=== PATIENT | female | born 1985 | race Caucasian/White ===

== ENCOUNTER 2017-11-21 16:48 | Emergency (ER) | payer OTHER, MEDICAID ==
[~2017-11-21] VITALS: Ht 170.2 cm; Wt 74.8 kg
[~2017-11-21 16:48] MED LIST: ACETAMINOPHEN-1 EAC1 PO; ADDERALL 20 MG20 M1; ADDERALL XR 2525 MG PO; AMOXICILLIN 50500 MG PO; AMOXICILLIN875 MG PO; BACITRACIN 500U30 G1 TOP; BACTRIM DS TAB1 EACH PO; BACTROBAN CREAM30 G1 TOP; BACTROBAN22 GM TP; CIPRO250 MG PO; CIPROFLOXACIN500 M1 PO; CLONAZEPAM; CLONAZEPAM 1 MG1 M1 PO; DIFLUCAN150 M1 PO; DOXYCYCLINE 10100 M1 PO; FLEXERIL PO; HIBICLENS120 ML TP; HYDROCODON-ACE1 EAC7 PO; HYDROCODONE-AP1 EAC6 PO; KEFLEX500 MG PO; MEDROLDOSEPACK PO; MOBIC7.5 M1 PO; NOHOMEMEDICATIONS; NORCO 5-325 TA1 EACH PO; OXYCODONE HCL 55 MG PO; PERCOCET 5-3251 EACH PO; PHENERGAN 25 MG25 M1 PO; PREDNISONE 10 M10 MG PO; PREDNISONE 20 M20 M1 PO; PREDNISONE50 MG PO; PREVACID 24HR15 MG PO; PROZAC40 MG PO; PYRIDIUM200 MG PO; ROBAXIN 750 MG750 MG PO; TRAMADOL 50 MG50 MG PO; ULTRAM 50MG TAB50 MG PO; VENTOLIN HFA 1818 GM INH; VENTOLIN HFA INH8 GM IH; WELLBUTRIN XL300 M1 PO; ZOFRAN ODT4 MG PO; ZOFRAN4 MG PO; ZOLOFT; ZOLOFT PO; ZOLOFT100 MG PO; ZOLOFT50 MG PO; ZPAK PO; celexa; xanax
[2017-11-21] MEDS ORDERED: ADDERALL 10 MG10 MG PO (16:58)
[2017-11-21] MEDS ORDERED: IBUPROFEN 800800 M1 PO (17:13)
[2017-11-21] MEDS ORDERED: TRAMADOL 50 MG50 MG PO (17:13)
[2017-11-21] MEDS ORDERED: KEFLEX500 M1 PO (17:13)
[2017-11-21] MEDS ORDERED: TOPICAINE 5113 GM TOP (17:15)
[2017-11-21 17:23] VITALS: BP 132/92
== END 2017-11-21 17:24 | disposition home or self-care (01) ==
LOC: M.ERS 16:48
DX: L60.0 Ingrowing nail (principal); F32.9 Major depressive disorder, single episode, unspecified; Z90.49 Acquired absence of other specified parts of digestive tract

== ENCOUNTER 2017-12-15 20:55 | Emergency (ER) | payer OTHER, MEDICAID ==
[~2017-12-15] VITALS: Ht 170.2 cm; Wt 78.9 kg
[~2017-12-15 20:55] MED LIST changes: +ADDERALL 10 MG10 MG PO; +IBUPROFEN 800800 M1 PO; +KEFLEX500 M1 PO; +TOPICAINE 5113 GM TOP
[2017-12-15] MEDS ORDERED: [UNRECOGNIZED DRUG - REMARK] (21:06)
[2017-12-15] MEDS ORDERED: LIDOCAINE VISC100 ML SWISH&SPIT (21:32)
[2017-12-15 21:43] VITALS: BP 119/75
== END 2017-12-15 21:43 | disposition home or self-care (01) ==
LOC: M.ERS 20:55
DX: J02.8 Acute pharyngitis due to other specified organisms (principal); B97.89 Other viral agents as the cause of diseases classified elsewhere; F32.9 Major depressive disorder, single episode, unspecified; F17.200 Nicotine dependence, unspecified, uncomplicated; Z90.49 Acquired absence of other specified parts of digestive tract; Z98.890 Other specified postprocedural states

== ENCOUNTER 2019-03-03 09:44 | Emergency (ER) | payer OTHER, MEDICAID ==
[~2019-03-03] VITALS: Ht 170.2 cm; Wt 68.0 kg
[~2019-03-03 09:44] MED LIST changes: +LIDOCAINE VISC100 ML SWISH&SPIT; +[UNRECOGNIZED DRUG - REMARK]
[2019-03-03] MEDS ORDERED: NABUMETONE 750750 M1 PO (11:05)
[2019-03-03 11:20] VITALS: BP 120/73
== END 2019-03-03 11:32 | disposition home or self-care (01) ==
LOC: M.ERS 09:44
DX: S93.401A Sprain of unspecified ligament of right ankle, initial encounter (principal); F32.9 Major depressive disorder, single episode, unspecified; Z90.49 Acquired absence of other specified parts of digestive tract; Z98.890 Other specified postprocedural states; W22.8XXA Striking against or struck by other objects, initial encounter; Y93.89 Activity, other specified; Y92.89 Other specified places as the place of occurrence of the external cause; Y99.8 Other external cause status

== ENCOUNTER 2020-08-29 19:25 | Emergency (ER) | payer OTHER, MEDICAID ==
[~2020-08-29] VITALS: Ht 170.2 cm; Wt 70.3 kg
[~2020-08-29 19:25] MED LIST changes: +NABUMETONE 750750 M1 PO
[2020-08-29] MEDS ORDERED: ADDERALL 20 MG20 MG PO (19:51)
[2020-08-29] MEDS ORDERED: ZOLOFT100 MG PO (19:51)
[2020-08-29] MEDS ORDERED: CLONAZEPAM 0.50.5 M1 PO (19:51)
[2020-08-29] MEDS ORDERED: VALTREX1000 MG PO (20:08)
[2020-08-29] MEDS ORDERED: PREDNISONE 10 M10 MG PO (20:08)
[2020-08-29 20:09] LABS: URINE BILIRUBIN NEGATIVE (Negative); URINE BLOOD NEGATIVE (Negative); URINE CLARITY CLEAR; URINE COLOR YELLOW; URINE GLUCOSE-RANDOM NEGATIVE (Negative); URINE KETONES NEGATIVE (Negative); URINE LEUKOCYTES-REFLEX NEGATIVE (Negative); URINE NITRITE-REFLEX NEGATIVE (Negative); URINE PROTEIN NEGATIVE (Negative); URINE SPECIFIC GRAVITY >= 1.030 (1.005-1.030); URINE UROBILINOGEN 0.2 E.U./dl (0.2-1.0)
[2020-08-29] MEDS ORDERED: FLEXERIL PO (20:09)
[2020-08-29 20:19] VITALS: BP 139/95
== END 2020-08-29 20:22 | disposition home or self-care (01) ==
LOC: M.ERS 19:25
PROVIDERS: Physician Assistant
DX: B02.9 Zoster without complications (principal); F17.210 Nicotine dependence, cigarettes, uncomplicated; Z98.890 Other specified postprocedural states; Z90.49 Acquired absence of other specified parts of digestive tract; Z98.51 Tubal ligation status

== ENCOUNTER 2020-10-26 15:54 | Emergency (ER) | payer OTHER, MEDICAID ==
[~2020-10-26] VITALS: Ht 170.2 cm; Wt 68.0 kg
[~2020-10-26 15:54] MED LIST changes: +ADDERALL 20 MG20 MG PO; +CLONAZEPAM 0.50.5 M1 PO; +VALTREX1000 MG PO
[2020-10-26] MEDS ORDERED: LEVO-T50 MCG PO (16:10)
[2020-10-26 16:35] LABS: ABSOLUTE BASOPHILS 0.1 thou/uL (0.0-0.2); ABSOLUTE LYMPHOCYTES 2.1 thou/uL (0.8-5.3); ABSOLUTE MONOCYTES 0.7 thou/uL (0.0-1.2); ABSOLUTE NEUTROPHILS 4.9 thou/uL (1.6-8.1); BASOPHILS 0.8 %; EOSINOPHILS 0.6 %; HEMATOCRIT 37.7 % (37.0-47.0); LYMPHOCYTES 26.9 %; MCHC 34.6 g/dL (28.0-37.0); MCV 89.6 fL (80.0-100.0); MONOCYTES 8.3 %; MPV 8.3 fl. (7.2-11.1); NUCLEATED RBCS 0 /100WBC; PLATELET COUNT* 278 thou/uL (150-400); POLYS 63.4 %; RDW-CV 13.8 % (10.5-14.5); WBC 7.8 thou/uL (4.0-11.0)
[2020-10-26 16:38] LABS: URINE BLOOD NEGATIVE (Negative); URINE CLARITY CLEAR; URINE COLOR YELLOW; URINE GLUCOSE-RANDOM NEGATIVE (Negative); URINE KETONES TRACE (Negative); URINE LEUKOCYTES-REFLEX NEGATIVE (Negative); URINE NITRITE-REFLEX NEGATIVE (Negative); URINE PROTEIN NEGATIVE (Negative); URINE SPECIFIC GRAVITY >= 1.030 (1.005-1.030); URINE UROBILINOGEN 0.2 E.U./dl (0.2-1.0)
[2020-10-26 16:47] LABS: ICTOTEST (BILI CONFIRMATORY) Negative (Negative); URINE BILIRUBIN 1+ (Negative)
[2020-10-26 16:50] LABS: CALCIUM 9.3 mg/dL (8.5-10.1); CREATININE 0.9 mg/dL (0.6-1.3)
[2020-10-26 16:55] LABS: AMP/METHAMP POSITIVE (Negative); BARBITURATES Negative (Negative); BENZODIAZEPINES POSITIVE (Negative); COCAINE Negative (Negative); METHADONE Negative (Negative); OPIATES Negative (Negative); PCP Negative (Negative); THC POSITIVE (Negative)
[2020-10-26 16:58] LABS: ALBUMIN 4.3 g/dL (3.4-5.0); TOTAL PROTEIN 7.8 g/dL (6.4-8.2)
[2020-10-26 18:47] VITALS: BP 119/83
--- NOTE | 2020-10-27 09:05 | EKG ---
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1985 Requested By: Margi Martinez Order Number: [id number] MD: Carlo Alejo Measurements Intervals [place] Rate: 101 P: 74 [place]: 147 QRS: 59 QRSD: 83 T: 11 QT: 320 QTc: 415 Interpretive Statements Sinus tachycardia Compared to ECG 01/07/2012 16:59:03 Sinus rhythm no longer present Electronically Signed On 10-27-2020 9:05:01 VP CLINICAL RESEARCH by Carlo Alejo [email or web address] <ELECTRONICALLY SIGNED> By: Carlo Alejo MD, [facility] 10/27/20 0905 1618 1618 Carlo Alejo MD, [facility] /EPI
== END 2020-10-26 18:47 | disposition home or self-care (01) ==
LOC: M.ERS 15:54
PROVIDERS: Physician Assistant
DX: E07.9 Disorder of thyroid, unspecified (principal); E86.0 Dehydration; F19.90 Other psychoactive substance use, unspecified, uncomplicated; Z20.828 Contact with and (suspected) exposure to other viral communicable diseases; F17.210 Nicotine dependence, cigarettes, uncomplicated; Z98.890 Other specified postprocedural states; Z90.49 Acquired absence of other specified parts of digestive tract; Z98.51 Tubal ligation status; Z79.899 Other long term (current) drug therapy

== ENCOUNTER 2021-05-11 16:50 | Emergency (ER) | payer OTHER, MEDICAID ==
[~2021-05-11] VITALS: Ht 170.2 cm; Wt 65.8 kg
[~2021-05-11 16:50] MED LIST changes: +LEVO-T50 MCG PO
[2021-05-11] MEDS ORDERED: CLONAZEPAM 0.50.5 M1 PO (17:00)
[2021-05-11] MEDS ORDERED: CENTANY30 GM TOP (17:37)
[2021-05-11] MEDS ORDERED: DOXYCYCLINE 10100 MG PO (17:37)
[2021-05-11] MEDS ORDERED: APAP W/CODEINE1 TA2 PO (17:42)
[2021-05-11 18:03] VITALS: BP 117/75
== END 2021-05-11 18:04 | disposition home or self-care (01) ==
LOC: M.ERS 16:50
DX: S80.922A Unspecified superficial injury of left lower leg, initial encounter (principal); S81.802A Unspecified open wound, left lower leg, initial encounter; Z98.890 Other specified postprocedural states; Z90.49 Acquired absence of other specified parts of digestive tract; Z98.51 Tubal ligation status; W18.39XA Other fall on same level, initial encounter; Y93.89 Activity, other specified; Y92.89 Other specified places as the place of occurrence of the external cause; Y99.8 Other external cause status

== ENCOUNTER 2021-07-18 15:53 | Emergency (ER) | payer OTHER, MEDICAID ==
[~2021-07-18] VITALS: Ht 170.2 cm; Wt 65.8 kg
[~2021-07-18 15:53] MED LIST changes: +APAP W/CODEINE1 TA2 PO; +CENTANY30 GM TOP; +DOXYCYCLINE 10100 MG PO
[2021-07-18] MEDS ORDERED: APAP W/CODEINE1 TA2 PO (16:55)
[2021-07-18] MEDS ORDERED: TESSALON PERLE100 MG PO (16:55)
[2021-07-18 17:10] VITALS: BP 122/68
== END 2021-07-18 17:10 | disposition home or self-care (01) ==
LOC: M.ERS 15:53
DX: J06.9 Acute upper respiratory infection, unspecified (principal); Z20.822 Contact with and (suspected) exposure to COVID-19; M79.18 Myalgia, other site; F32.9 Major depressive disorder, single episode, unspecified; F90.9 Attention-deficit hyperactivity disorder, unspecified type; F41.9 Anxiety disorder, unspecified; Z98.890 Other specified postprocedural states; Z98.51 Tubal ligation status; Z90.49 Acquired absence of other specified parts of digestive tract; Z79.899 Other long term (current) drug therapy

== ENCOUNTER 2021-10-29 12:51 | Emergency (ER) | payer OTHER, MEDICAID ==
[~2021-10-29] VITALS: Ht 167.6 cm; Wt 59.0 kg
[~2021-10-29 12:51] MED LIST changes: +TESSALON PERLE100 MG PO
[2021-10-29 13:58] LABS: ABSOLUTE BASOPHILS 0.1 thou/uL (0.0-0.2); ABSOLUTE LYMPHOCYTES 2.1 thou/uL (0.8-5.3); ABSOLUTE MONOCYTES 0.6 thou/uL (0.0-1.2); ABSOLUTE NEUTROPHILS 4.3 thou/uL (1.6-8.1); BASOPHILS 1.3 %; EOSINOPHILS 0.7 %; HEMATOCRIT 37.7 % (37.0-47.0); HEMOGLOBIN 12.7 gm/dL (12.0-15.0); LYMPHOCYTES 29.6 %; MCH 30.8 pg (26.0-34.0); MCHC 33.6 g/dL (28.0-37.0); MCV 91.9 fL (80.0-100.0); MONOCYTES 8.7 %; MPV 7.3 fl. (7.2-11.1); NUCLEATED RBCS 0 /100WBC; PLATELET COUNT* 352 thou/uL (150-400); POLYS 59.7 %; RBC 4.11 mil/uL (4.20-5.00); RDW-CV 14.1 % (10.5-14.5); WBC 7.2 thou/uL (4.0-11.0)
[2021-10-29 14:10] LABS: CALCIUM 8.6 mg/dL (8.5-10.1); CREATININE 0.8 mg/dL (0.6-1.3); POTASSIUM 4.5 mmol/L (3.5-5.1)
[2021-10-29 14:11] LABS: URINE BILIRUBIN NEGATIVE (Negative); URINE BLOOD NEGATIVE (Negative); URINE CLARITY CLEAR; URINE COLOR YELLOW; URINE GLUCOSE-RANDOM NEGATIVE (Negative); URINE KETONES NEGATIVE (Negative); URINE LEUKOCYTES-REFLEX NEGATIVE (Negative); URINE NITRITE-REFLEX NEGATIVE (Negative); URINE PROTEIN NEGATIVE (Negative); URINE SPECIFIC GRAVITY 1.015 (1.005-1.030); URINE UROBILINOGEN 0.2 E.U./dl (0.2-1.0)
[2021-10-29 14:14] LABS: ALBUMIN 3.7 g/dL (3.4-5.0); TOTAL BILIRUBIN 0.2 mg/dL (<0.1-1.0); TOTAL PROTEIN 7.3 g/dL (6.4-8.2)
[2021-10-29] MEDS ORDERED: SUPRAX400 M1 PO (15:15)
[2021-10-29] MEDS ORDERED: DOXYCYCLINE 10100 MG PO (15:15)
[2021-10-29] MEDS ORDERED: FLEXERIL PO (15:15)
[2021-10-29] MEDS ORDERED: METRONIDAZOLE500 M4 PO (15:15)
[2021-10-29] MEDS ORDERED: TRAMADOL 50 MG50 MG PO (15:24)
--- NOTE | 2021-10-29 15:27 | EKG ---
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1985 Requested By: Elvie Valdez Order Number: [id number] MD: Carlo Alejo Measurements Intervals [place] Rate: 84 P: 61 [place]: 142 QRS: 44 QRSD: 84 T: 21 QT: 371 QTc: 439 Interpretive Statements Sinus rhythm Compared to ECG 10/26/2020 16:18:21 Sinus tachycardia no longer present Electronically Signed On 10-29-2021 15:27:09 STOCK SUPERVISOR by Carlo Alejo [email or web address] <ELECTRONICALLY SIGNED> By: Carlo Alejo MD, [facility] 10/29/21 1527 1414 1414 Carlo Alejo MD, [facility] /EPI
[2021-10-29 15:37] VITALS: BP 118/80
== END 2021-10-29 15:38 | disposition home or self-care (01) ==
LOC: M.ERS 12:51
PROVIDERS: Nurse Practitioner Family
DX: N76.0 Acute vaginitis (principal); B96.89 Other specified bacterial agents as the cause of diseases classified elsewhere; Z20.2 Contact with and (suspected) exposure to infections with a predominantly sexual mode of transmission; F32.9 Major depressive disorder, single episode, unspecified; F41.9 Anxiety disorder, unspecified; F90.9 Attention-deficit hyperactivity disorder, unspecified type; R10.84 Generalized abdominal pain; F17.210 Nicotine dependence, cigarettes, uncomplicated; Z98.890 Other specified postprocedural states; Z90.49 Acquired absence of other specified parts of digestive tract; Z98.51 Tubal ligation status; Z79.899 Other long term (current) drug therapy